=== PATIENT | male | born 1995 | race Two or more races ===

== ENCOUNTER 2023-12-17 12:41 | Emergency (ER) | payer OTHER ==
[~2023-12-17] VITALS: Ht 180.3 cm; Wt 86.2 kg
[2023-12-17] MEDS ORDERED: DEXAMETHASONE SODIUM PHOSPHATE 4 MG/ML VIAL IM STA (14:12)
[2023-12-17] MEDS ORDERED: DEXAMETHASONE SODIUM PHOSPHATE 4 MG/ML VIAL ONE (14:27)
[2023-12-17 15:40] LABS: HEMATOCRIT 46.2 % (39.0-48.0); HEMOGLOBIN 15.7 g/dL (13-16.00); MEAN CELL VOLUME 93.3 fL (80.0-100.00); MEAN CORPUSCULAR HEMOGLOBIN 31.7 pg (27.00-32.0); MEAN CORPUSCULAR HGB CONC 33.9 g/dl (32.0-36.0); PLATELET COUNT 205 K/uL (150-450); RED BLOOD COUNT 4.95 M/uL (4.00-6.00); RED CELL DISTRIBUTION WIDTH 12.4 % (11.5-14.5)
[2023-12-17] MEDS ORDERED: AMOX1TAB5 PO (18:03)
== END 2023-12-17 18:33 | disposition home or self-care (01) ==
LOC: ER 12:43
DX: J02.8 Acute pharyngitis due to other specified organisms (principal); Z91.013 Allergy to seafood